=== PATIENT | female | born 1970 | race Caucasian/White ===

== ENCOUNTER 2023-04-21 09:04 | Emergency (ER) | payer OTHER, SELFPAY ==
[2023-04-21 09:06] VITALS: BP 141/87
[2023-04-21 09:21] VITALS: BMI 33.9
[2023-04-21 09:25] VITALS: BP 129/83
[2023-04-21 09:53] LABS: % Basophils 0.4 % (0-2); % Eosinophils 0.5 % (0-6); % Immature Granulocytes 0.3 % (0-0.5); % Lymphocytes 12.7 % (20.5-51.1); % Monocytes 8.2 % (1.7-9.3); % Neutrophils 77.9 % (42.2-75.2); Absolute Eosinophils 0.1 10^3/uL (0-0.7); Absolute Lymphocytes 1.3 10^3/uL (1.2-3.4); Absolute Monocytes 0.9 10^3/uL (0.1-0.6); Absolute Neutrophils 8.1 10^3/uL (1.4-6.5); Hematocrit 33.4 % (37.0-47.0); Hemoglobin 10.8 g/dL (12.0-16.0); Mean Corp Hgb Conc. 32.3 g/dL (33.0-37.0); Mean Corpuscular Volume 80.5 fL (81.0-99.0); Mean Platelet Volume 11.7 fL (7.4-10.4); Nucleated Red Blood Cells % 0 %; Platelet Count 207 10^3/uL (130-400); Red Blood Cell Count 4.15 10^6/uL (4.20-5.40); Red Cell Dist. Width 14.1 % (11.5-14.5); White Blood Cell Count 10.4 10^3/uL (4.8-10.8)
[2023-04-21 10:00] VITALS: BP 126/78
[2023-04-21 10:01] LABS: INR 1.01; PT 13.1 Sec (11.4-14.6)
[2023-04-21 10:02] LABS: APTT 28.4 Sec (23.4-35.0)
[2023-04-21 10:07] LABS: ALT (SGPT) 30 U/L (0-35); AST (SGOT) 29 U/L (14-36); Albumin 3.8 g/dl (3.5-5.0); Alkaline Phosphatase 75 U/L (38-126); Blood Urea Nitrogen 16 mg/dl (7-17); Calcium 9.2 mg/dl (8.4-10.2); Carbon Dioxide 26 mmol/L (22-30); Chloride 106 mmol/L (98-107); Estimated Creatinine Clearance 107 ml/min; Glucose 106 mg/dl (70-99); Lipase 58 U/L (23-300); Potassium 3.8 mmol/L (3.5-5.1); Sodium 136 mmol/L (135-145); Total Bilirubin 0.6 mg/dl (0.2-1.3); Total Protein 6.7 g/dl (6.3-8.2); eGFR > 60.00
[2023-04-21] MEDS: NSS 1000 IV (10:15)
[2023-04-21 10:41] LABS: Lactic Acid 0.9 mmol/L (0.7-2.0)
[2023-04-21 11:00] VITALS: BP 125/72
--- NOTE | 2023-04-21 11:45 | ED.GENMED ---
History of Present Illness
General
Chief Complaint: Rectal Bleeding
Source: patient
Exam Limitations: none
Time Seen by Provider: 04/21/23 09:29
Travel History
Have you had any contact with someone who has COVID-19?: No
Do you have any symptoms of coronavirus? Fever > 100 degrees, chills, cough, shortness of breath, sore throat, loss of taste or smell, muscle aches, or headache?: No
History of Present Illness
History of Present Illness:
53-year-old female who presents with rectal bleeding. The patient states that she started last night with some cramping. Had some loose stool and diarrhea. She then noticed blood when she wiped. Patient still does report lower abdominal
cramping. No vomiting but last night when she had her cramping she felt she is throw up. She developed lightheaded. No chest pain or shortness of breath. No recent travel.
Past History
Past History
ED Past Surgical History: Orthopedic
Phy Exam
Physical Exam
Physical Exam:
CONSTITUTIONAL Patient alert and oriented to person, place and time. Well-appearing. Vital signs reviewed.
HEAD atraumatic, normocephalic.
EYES eyelids normal to inspection, Extraocular muscles intact, Conjunctiva normal, Sclera normal.
NECK normal range of motion, Trachea midline, no jugular venous distention.
RESPIRATORY CHEST No respiratory distress noted, Chest expansion equal, Bilateral breath sounds clear.
CARDIOVASCULAR regular rate and rhythm, Heart sounds normal.
ABDOMEN mild diffuse tenderness, left lower quadrant and suprapubic region for the most tender regions., Bowel sounds normal. No distention.
BACK normal inspection, no obvious deformities
UPPER EXTREMITY range of motion normal, Motor strength normal, no cyanosis, no edema.
LOWER EXTREMITY range of motion normal, Motor strength normal, no cyanosis, no edema.
NEURO Speech normal, No focal motor deficits, Wesly coma scale 15, Memory normal, Cranial Nerves intact to screening exam.
SKIN skin warm, dry, and normal in color.
PSYCHIATRIC patient oriented to person place and time, Normal affect.
Course
Orders/Labs/Results
Orders:
Orders
04/21/23 09:28
Type+Screen Urgent
Complete Blood Count/With Diff Urgent
Comprehensive Metabolic Panel Urgent
Lipase Urgent
PTT Urgent
Prothrombin Time Urgent
04/21/23 10:02
Stool Culture Urgent
CLEMENTE Source: Feces/Stool
Specimen Description:
04/21/23 10:03
CT Abd/pelvis W Iv Cont Urgent
Comment:
Reason For Exam: LLQ abd pain, bloody stools
0.9% Sodium Chloride 1000 ml [Nss] 1,000 ml IV BOLUS
04/21/23 10:15
Lactic Acid Stat
Abnormal Lab Results
04/21/23
09:28
RBC 4.15 L 10^6/uL
(4.20-5.40)
Hgb 10.8 L g/dL
(12.0-16.0)
Hct 33.4 L %
(37.0-47.0)
MCV 80.5 L fL
(81.0-99.0)
MCH 26.0 L pg
(27.0-31.0)
MCHC 32.3 L g/dL
(33.0-37.0)
MPV 11.7 H fL
(7.4-10.4)
Absolute Neuts (auto) 8.1 H 10^3/uL
(1.4-6.5)
Absolute Monos (auto) 0.9 H 10^3/uL
(0.1-0.6)
Neutrophils % 77.9 H %
(42.2-75.2)
Lymphocytes % 12.7 L %
(20.5-51.1)
Glucose 106 H mg/dl
(70-99)
04/21/23 09:28
04/21/23 09:28
Vital Signs
Initial and Last Documented VS:
Initial Vital Signs
Temp Pulse Resp BP Pulse Ox
99.1 F 102 16 141/87 96
04/21/23 09:06 04/21/23 09:06 04/21/23 09:06 04/21/23 09:06 04/21/23 09:06
Last Documented Vital Signs
Temp Pulse Resp BP Pulse Ox
99.1 F 86 16 126/78 96
04/21/23 09:06 04/21/23 10:30 04/21/23 10:30 04/21/23 10:00 04/21/23 10:30
MDM/Problems Addressed
Differential Diagnosis Includes:
Ischemic colitis, infectious colitis, diverticular bleed, AVM
MDM/Problems Addressed:
Colitis
*Radiology
Radiology exam reviewed: preliminary read by ED provider (No free air noted) and radiology read reviewed
*Pulse Oximetry
Patient hypoxic: no
*Critical Care Note
Total Time (30-74mins, 75-104mins- exclusive of procedures): Not Applicable
Data Reviewed
Source: patient
Further Testing Considered But Not Given:
Considered CTA but no further episodes here in the emergency department
Patient Management
Escalation/DeEscalation of care consider admission/obs:
Patient appears well. Suspect infectious cause. Will provide antibiotics but I recommended that she hold off until tomorrow. If symptoms start to improve, conservative management may work. If not, antibiotic management and outpatient follow-up
with PCP
ED Attending Note
-
Portions of this chart may have been created with voice recognition software.� Occasional wrong word or��sound alike� substitutions may have occurred due to the inherent limitations of voice recognition software.
Discharge Plan
Departure
Patient Disposition: Home (Routine Discharge)
Date of Disposition: 04/21/23
Time of Disposition: 12:11
Patient with high blood pressure during this ER visit?: No
Discharge Problem:
Colitis, infectious
Instructions: Colitis
Prescriptions:
New
levofloxacin 500 mg tablet
500 mg PO DAILY 10 Days Qty: 10 0RF
metronidazole 500 mg tablet
500 mg PO Q8H 14 Days Qty: 42 0RF
dicyclomine 20 mg tablet
20 mg PO QID PRN (Reason: abdominal pain) Qty: 20 0RF
No Action
omeprazole 40 mg Capsule,Delayed Release(Dr/Ec)
40 mg PO DAILY
naproxen sodium [Aleve] 220 mg Tablet
220 mg PO Q8HPRN PRN (Reason: back pains)
pravastatin 20 mg Tablet
20 mg PO QPM
paroxetine HCl [Paxil CR] 25 mg Tablet Extended Release 24 Hr
25 mg PO DAILY
hydrochlorothiazide 12.5 mg Tablet
12.5 mg PO DAILY
Referrals:
Effie Manzo CRNP [Family Provider] -
Activity Restrictions/Additional Instructions:
Please see your doctor in the next 3 to 5 days for reevaluation. Return immediately for intractable bleeding, worsening pain, fevers or any other concerns.
Interventions
Interventions:
*Risk Screen - Suicide Last Done: 04/21/23 09:07
*General Assessment Last Done: 04/21/23 09:07
*Neglect/Abuse Screening Last Done: 04/21/23 09:07
ED- Fall Risk Assessment Last Done: 04/21/23 09:32
*ED COVID-19 Vaccine History Last Done: 04/21/23 09:21
[facility]-J[facility] Assessment Last Done: 04/21/23 09:21
ED- Cardiac Assessment Last Done: 04/21/23 09:21
ED- Pulmonary Assessment Last Done: 04/21/23 09:21
== END 2023-04-21 12:26 | disposition home or self-care (01) ==
LOC: EMR 09:04
PROVIDERS: EMERGENCY PHYSICIAN Emergency Medicine; FAMILY PHYSICIAN Nurse Practitioner Adult Health
DX: A09 Infectious gastroenteritis and colitis, unspecified (principal); K51.50 Left sided colitis without complications; R42 Dizziness and giddiness; Z88.0 Allergy status to penicillin
CPT/HCPCS: 99285; 96360; 74177; 80053; 83605; 83690; 85025; 85610; 85730; 86850; 86900; 86901; Q9967